=== PATIENT | female | born 1970 | race Caucasian/White ===

== ENCOUNTER → 2018-12-10 08:05 | Outpatient (CLI) | payer OTHER, SELFPAY ==
[2018-12-10 08:46] LABS: Basophils % 1.4 % (0.1-2.0); Eosinophils # 0.1 K/mm3 (0.0-0.4); Eosinophils % 3.5 % (0.1-12.0); Hematocrit 38.9 % (37.0-47.0); Hemoglobin 12.6 g/dL (12.2-16.2); Lymphocytes # 1.2 K/mm3 (0.7-4.5); Lymphocytes % 41.8 % (10-50); Mean Corpuscular HGB Conc 32.4 g/dL (31.8-35.4); Mean Corpuscular Hemoglobin 30.7 pg (27.0-31.2); Mean Corpuscular Volume 94.8 fl (81-99); Mean Platelet Volume 7.5 fl (7.4-10.4); Monocytes # 0.2 K/mm3 (0.1-1.0); Monocytes % 5.6 % (1.7-9.3); Neutrophils # 1.4 K/mm3 (1.8-7.8); Neutrophils % 47.7 % (37.0-80.0); Platelet Count 236 K/mm3 (142-424); Red Blood Count 4.11 M/mm3 (4.20-5.40); Red Cell Distribution Width 13.7 % (11.5-17.5); White Blood Count 2.9 K/mm3 (4.8-10.8)
[2018-12-10 10:08] LABS: Alanine Aminotransferase 20 U/L (12-78); Albumin Level 3.4 gm/dL (3.4-5.0); Alkaline Phosphatase 54 U/L (46-116); Anion Gap 8.6 mEq/L (5-15); Aspartate Amino Transferase 12 U/L (15-37); Bilirubin,Total 0.9 mg/dL (0.2-1.0); Blood Urea Nitrogen 16 mg/dL (7-18); Calcium 8.7 mg/dL (8.5-10.1); Carbon Dioxide 29 mmol/L (21.0-32.0); Chloride 107 mmol/L (98-107); Chol/HDL Ratio 2.4 (1-3.5); Cholesterol 166 mg/dL (140-200); Creatinine,Serum 0.74 mg/dL (0.55-1.02); Estimated Glomerular Filt Rate 83 ml/min (>60); GFR (African American) 101 ML/MIN (>60); Globulin 3.5 gm/dl (1.3-3.2); Glucose 87 mg/dL (74-106); HDL Cholesterol 69 mg/dL (29-89); LDL Cholesterol 90 mg/dL (0-130); Potassium 4.6 mmoL/L (3.5-5.1); Sodium 140 mmol/L (136-145); Thyroid Stimulating Hormone 2.72 uIU/ml (0.358-3.740); Total Protein,Serum 6.9 gm/dL (6.4-8.2); Triglycerides 37 mg/dL (30-200); VLDL Cholesterol 7 mg/dL (0-40)
[2018-12-11 10:14] LABS: Vitamin D 25 Hydroxy 18.8 ng/mL (30.0-100.0)
[2018-12-12 15:30] LABS: Ferritin 39 ng/mL (8-388)
[2018-12-14 14:41] LABS: Vitamin B12 496 pg/mL (232-1245)
== END ==
PROVIDERS: Visit Provider Nurse Practitioner Family
DX: Z00.00 Encounter for general adult medical examination without abnormal findings (principal); L73.9 Follicular disorder, unspecified; E55.9 Vitamin D deficiency, unspecified
CPT/HCPCS: 36415; 80053; 80061; 82607; 82652; 82728; 84443; 85025

== ENCOUNTER → 2019-11-07 08:54 | Outpatient (CLI) | payer OTHER, SELFPAY ==
--- NOTE | 2019-11-07 08:59 | MM_ITS ---
PROCEDURE: MM DIG SCREENING MAMM BI W/CAD Digital Breast Tomosynthesis Included CLINICAL INDICATION: SCREENING There is a history of breast cancer patient's paternal aunt. COMPARISON: DIGMAMMS MAMMOGRAM SCREEN-MAIL CLERK N/C from 06/05/2009 DIGMAMMDX MAMMOGRAM DX-MAIL CLERK N/C from 02/02/2010 DMSB DIG MAMM-SCREEN KADEN from 09/01/2015 TECHNIQUE: Standard CC and MLO images and 3D Tomosynthesis was obtained. R2 CAD reviewed. FINDINGS: Moderate diffuse fibroglandular densities are seen in both breasts and the findings are bilateral and symmetrical. There couple of benign-appearing calcifications in each breast. There is a small benign-appearing nodular density upper-outer quadrant left breast likely a small fibroadenoma or intramammary lymph node. There is no suspicious lesion and no suspicious microcalcifications. IMPRESSION: Moderate diffuse breast density with no suspicious lesions seen BI-RAD Category: 2 Benign Finding(s) FOLLOW-UP: 1YR 1 Year Follow-up (A letter has been sent to the patient regarding results of the study.) Dictated by: Dr. David Ascencio MD 11/09/2019 10:[address] David Ascencio MD in [place] 11/09/2019 10:22
== END ==
PROVIDERS: PCP Nurse Practitioner Family; Visit Provider Nurse Practitioner Family
DX: Z12.31 Encounter for screening mammogram for malignant neoplasm of breast (principal)
CPT/HCPCS: 77063; 77067

== ENCOUNTER 2019-12-13 07:29 | Day surgery (SDC) | payer OTHER, SELFPAY ==
[2019-12-09 12:14] VITALS: BMI 26.5
[2019-12-13] VITALS (7 sets, daily range): BP systolic 91–120; BP diastolic 51–66; PULSE 53–73; RESP 16–20; TEMP 36.2–36.6; O2SAT 96–100
--- NOTE | 2019-12-13 08:13 | P.PCN_ITS ---
[facility] Procedure Note Procedure Note:: Colonoscopy Procedure Report: Colonoscopy Endoscopist: Paulino Sheppard II, MD Referring physician: MARIANO Oakes/Ralph Tidwell M.D. Date of Procedure: December 13, 2019 Equipment: Olympus 180 variable stiffness pediatric colonoscope Sedation: MAC sedation Indication: Mrs. Tidwell is a 49-year-old female who is here for initial screening colonoscopy. She reports no abdominal pain, weight loss, change in her bowel habits or rectal bleeding. She reports no family history of colon cancer. Procedure: Prior to the procedure, a history and physical exam was performed, and patient's medications and allergies were reviewed. The risks, benefits and alternatives of the sedation and procedure were discussed with the patient. All questions were answered and informed consent was obtained. The patient was brought to the procedure room. Patient identification and proposed procedure were verified by the physician and the nurse. The patient was placed in a left lateral decubitus position and the scope was passed under direct vision. Throughout the procedure, the patient's blood pressure, pulse, and oxygen saturations were monitored continuously. The colonoscopy was accomplished without difficulty. The patient tolerated the procedure well. Findings: On digital rectal examination there was normal rectal tone. There were no external hemorrhoids. The colonoscope was introduced through the anal canal to the rectum and advanced to the cecum. The ileocecal valve and appendiceal orifice were identified. The scope was advanced a short distance into the ileum which appeared grossly normal. The scope was then withdrawn into the colon. The cecum, ascending and transverse colon and mucosa were grossly normal. There were mildly scattered diverticuli throughout the descending and sigmoid colon (LEFT colon). The rectum itself was normal. Upon retroflexion within the rectum there were grade 1-2 internal hemorrhoids. The preparation was fair to good throughout with Nara Visa Preparation Score of 7 out of 9. The cecal time was 12 minutes. Impression: 1. Mild left-sided diverticulosis 2. Grade 1-2 internal hemorrhoids Plan: The patient will not require screening/surveillance colonoscopy again for 10 years by ACS guidelines. I would encourage fiber supplementation on a long-term daily maintenance basis.
--- NOTE | 2019-12-13 08:20 | P.PN_ITS ---
[facility] Anesthesia Checklist - Patient Identification Patient Identification: Arm Band, Verbal (Name & ) - Structural Data Admitted From: Home Planned Operative Procedure/s: colonoscopy Consent for Planned Operative Procedure(s) Verified: Yes Verified Documents: Surgical Consent, History and Physical - NPO Status Verified Time NPO: 00:00 - Chart Verification Results Verified: None - Additional verifications Patient : No Anesthesia Reactions: No - Airway Assessment C-Spine Mobility Assessed: Yes TMJ Mobility Assessed: Yes Dentition: Good Dentition - Neurological Assessment Level of Consciousness: Awake, Alert, Appropriate, Follows Commands Hx Seizures: No Numbness or tingling in extremities: No - Anesthesia Plan Anesthesia Risk discussed: Yes Anesthesia Plan: Verified ASA Class: I Anesthesia Type: MAC [facility] History I have reviewed the patient's past medical history: Yes Medical History: Denies:: Cancer, Diabetes Mellitus Type 1, Diabetes Mellitus Type 2, MRSA, Seizures *Have you ever received a pneumonia vaccine?: No *Have you received a flu vaccine this season?: Yes Anesthesia experience/problems:: none Other Surgeries: Yes: Hernia Repair Amputation: No Fractures: No - *Social History Educational Level: Completed Graduate School Alcohol Intake: never Substance Use Type: denies use *Occupational Status:: employed *Travel in the last 8 weeks: None Family Hx:: Diabetes
== END 2019-12-13 09:22 | disposition home or self-care (01) ==
LOC: OUTP 07:31
PROVIDERS: PCP Nurse Practitioner Family; Visit Provider Internal Medicine Gastroenterology
PROC: 0DJD8ZZ Inspection of Lower Intestinal Tract, Via Natural or Artificial Opening Endoscopic (ICD-10-PCS; CPT 45378; principal; 2019-12-13 08:30)
DX: Z12.11 Encounter for screening for malignant neoplasm of colon (principal); K57.30 Diverticulosis of large intestine without perforation or abscess without bleeding; K64.1 Second degree hemorrhoids
CPT/HCPCS: 45378

== ENCOUNTER → 2020-05-22 18:14 | Outpatient (CLI) | payer OTHER, SELFPAY | PROVIDERS: Visit Provider Nurse Practitioner Family | DX: Z20.828 Contact with and (suspected) exposure to other viral communicable diseases (principal); U07.1 COVID-19 | CPT/HCPCS: U0003 ==

== ENCOUNTER → 2020-08-24 08:15 | Outpatient (CLI) | payer OTHER, SELFPAY ==
--- NOTE | 2020-08-24 08:19 | XR_ITS ---
PROCEDURE: XR ANKLE LT MIN 3V CLINICAL INDICATION: LT ANKLE PAIN Injury with pain COMPARISON: No exams were available for comparison FINDINGS: There is a nondisplaced transverse fracture involving the lateral malleolus. The fracture is 1 cm proximal to the tip of the distal fibula. There is overlying soft tissue swelling. The ankle mortise is preserved. Unremarkable talar dome. No lytic or blastic change. IMPRESSION: Nondisplaced transverse fracture of the lateral malleolus Dictated by: Mich Browne MD 08/24/2020 09:09 Mich Browne MD in [place] 08/24/2020 09:09
== END ==
PROVIDERS: PCP Nurse Practitioner Family; Visit Provider Nurse Practitioner Family
DX: M25.572 Pain in left ankle and joints of left foot (principal)
CPT/HCPCS: 73610

== ENCOUNTER 2020-08-24 10:40 | Outpatient (RCR) | payer OTHER, SELFPAY | END 2020-08-24 11:20 | disposition home or self-care (01) | LOC: PT 10:40 | PROVIDERS: Visit Provider Orthopaedic Surgery | DX: S82.892A Other fracture of left lower leg, initial encounter for closed fracture (principal) | CPT/HCPCS: 97760 ==

== ENCOUNTER → 2020-09-14 08:10 | Outpatient (CLI) | payer OTHER, SELFPAY ==
--- NOTE | 2020-09-14 08:16 | XR_ITS ---
PROCEDURE: XR ANKLE LT MIN 3V CLINICAL INDICATION: closed fracture of L ankle Follow-up fracture COMPARISON: CR XR ANKLE LT MIN 3V from 08/24/2020 FINDINGS: Transverse fracture once again noted involving the lateral malleolus. Fracture line is somewhat more prominent compared to the previous study which may be due to bony resorption from early healing. There remains good alignment. IMPRESSION: Nondisplaced fracture lateral malleolus with slight increased prominence of the fracture line which may be related to bony resorption from early healing Dictated by: Mich Browne MD 09/14/2020 15:41 Mich Browne MD in [place] 09/14/2020 15:41
== END ==
PROVIDERS: PCP Nurse Practitioner Family; Visit Provider Orthopaedic Surgery
DX: S82.892A Other fracture of left lower leg, initial encounter for closed fracture (principal)
CPT/HCPCS: 73610

== ENCOUNTER → 2020-10-05 08:14 | Outpatient (CLI) | payer OTHER, SELFPAY ==
--- NOTE | 2020-10-05 08:19 | XR_ITS ---
PROCEDURE: XR ANKLE WT BEARING LT MIN 3V CLINICAL INDICATION: low-transverse fracture of distal fibula Follow-up fracture COMPARISON: CR XR ANKLE LT MIN 3V from 08/24/2020 CR XR ANKLE LT MIN 3V from 09/14/2020 FINDINGS: Nondisplaced fracture involves the tip of the distal fibula. Fracture line appears somewhat less apparent. There is no significant displacement. IMPRESSION: Healing distal fibular fracture Dictated by: Mich Browne MD 10/05/2020 12:19 Mich Browne MD in [place] 10/05/2020 12:19
== END ==
PROVIDERS: PCP Internal Medicine Adolescent Medicine; Visit Provider Orthopaedic Surgery
DX: S82.892A Other fracture of left lower leg, initial encounter for closed fracture (principal)
CPT/HCPCS: 73610

== ENCOUNTER 2020-10-05 09:36 | Outpatient (RCR) | payer OTHER, SELFPAY | END 2020-10-05 10:15 | disposition home or self-care (01) | LOC: PT 09:36 | PROVIDERS: Visit Provider Orthopaedic Surgery | DX: S82.892D Other fracture of left lower leg, subsequent encounter for closed fracture with routine healing (principal) ==

== ENCOUNTER → 2020-11-02 08:08 | Outpatient (CLI) | payer OTHER, SELFPAY ==
--- NOTE | 2020-11-02 08:11 | XR_ITS ---
PROCEDURE: XR ANKLE LT MIN 3V CLINICAL INDICATION: low-transverse fracture of distal fibula Follow-up fracture COMPARISON: CR XR ANKLE LT MIN 3V from 08/24/2020 CR XR ANKLE LT MIN 3V from 09/14/2020 CR XR ANKLE WT BEARING LT MIN 3V from 10/05/2020 FINDINGS: Healing nondisplaced distal fibular fracture transverse in nature. There remains some lucency at the fracture line laterally. There is good alignment. IMPRESSION: Healing nondisplaced distal fibular fracture Dictated by: Mich Browne MD 11/02/2020 09:18 Mich Browne MD in [place] 11/02/2020 09:18
== END ==
PROVIDERS: PCP Nurse Practitioner Family; Visit Provider Orthopaedic Surgery
DX: S82.892A Other fracture of left lower leg, initial encounter for closed fracture (principal)
CPT/HCPCS: 73610

== ENCOUNTER → 2020-12-14 08:44 | Outpatient (CLI) | payer OTHER, SELFPAY ==
--- NOTE | 2020-12-14 08:48 | XR_ITS ---
PROCEDURE: XR ANKLE WT BEARING LT MIN 3V CLINICAL INDICATION: closed fracture of L ankle COMPARISON: CR XR ANKLE LT MIN 3V from 08/24/2020 CR XR ANKLE LT MIN 3V from 09/14/2020 CR XR ANKLE WT BEARING LT MIN 3V from 10/05/2020 CR XR ANKLE LT MIN 3V from 11/02/2020 FINDINGS: Good alignment nondisplaced fracture involving the lateral malleolus as before overall not significantly changed. Fracture line remains barely visible. Ankle mortise is preserved. Achilles enthesophyte and small calcaneal spur noted IMPRESSION: Good alignment nondisplaced fracture distal fibula unchanged Dictated by: Mich Browne MD 12/14/2020 10:30 Mich Browne MD in [place] 12/14/2020 10:30
== END ==
PROVIDERS: PCP Nurse Practitioner Family; Visit Provider Orthopaedic Surgery
DX: S82.899A Other fracture of unspecified lower leg, initial encounter for closed fracture (principal)
CPT/HCPCS: 73610

== ENCOUNTER → 2021-01-22 09:31 | Outpatient (CLI) | payer OTHER, SELFPAY ==
[2021-01-22 09:54] LABS: Basophils % 1.2 % (0.1-2.0); Eosinophils # 0.1 K/mm3 (0.0-0.4); Eosinophils % 1.7 % (0.1-12.0); Hematocrit 36.4 % (37.0-47.0); Hemoglobin 12.2 g/dL (12.2-16.2); Lymphocytes # 1.1 K/mm3 (0.7-4.5); Lymphocytes % 32.1 % (10-50); Mean Corpuscular HGB Conc 33.5 g/dL (31.8-35.4); Mean Corpuscular Hemoglobin 30.4 pg (27.0-31.2); Mean Corpuscular Volume 90.7 fl (81-99); Mean Platelet Volume 8.1 fl (7.4-10.4); Monocytes # 0.2 K/mm3 (0.1-1.0); Monocytes % 4.2 % (1.7-9.3); Neutrophils # 2.1 K/mm3 (1.8-7.8); Neutrophils % 60.8 % (37.0-80.0); Platelet Count 248 K/mm3 (142-424); Red Blood Count 4.01 M/mm3 (4.20-5.40); Red Cell Distribution Width 13.3 % (11.5-17.5); White Blood Count 3.5 K/mm3 (4.8-10.8)
[2021-01-22 10:45] LABS: Chloride 106 mmol/L (98-107); Sodium 137 mmol/L (136-145)
[2021-01-22 10:46] LABS: Potassium 4.4 mmoL/L (3.5-5.1)
[2021-01-22 10:48] LABS: Alanine Aminotransferase 12 U/L (12-78); Alkaline Phosphatase 58 U/L (38-126); Anion Gap 10.4 mEq/L (5-15); Aspartate Amino Transferase 24 U/L (14-36); Bilirubin,Total 1.5 mg/dl (0.2-1.3); Blood Urea Nitrogen 15 mg/dl (7-17); Carbon Dioxide 25 mmol/L (22.0-30.0); Cholesterol 175 mg/dl (140-200); Estimated Glomerular Filt Rate 88 ml/min (>60); GFR (African American) 107 ML/MIN (>60); Triglycerides 66 mg/dl (30-150); VLDL Cholesterol 13 mg/dL (0-40)
[2021-01-22 10:49] LABS: Albumin Level 4.2 g/dl (3.5-5.0); Albumin/Globulin Ratio 1.5 (1.1-1.8); Calcium 8.9 mg/dl (8.4-10.2); Chol/HDL Ratio 2.1 (1-3.5); Globulin 2.8 g/dL (1.3-3.2); Glucose 91 mg/dl (74-100); HDL Cholesterol 82 mg/dl (40-60)
[2021-01-22 10:59] LABS: Direct LDL Cholesterol 71.38 mg/dL (100-129)
[2021-01-22 11:05] LABS: 25-OH Vitamin D, Total 26.6 ng/mL (30-100)
== END ==
PROVIDERS: Visit Provider Nurse Practitioner Family
DX: Z00.00 Encounter for general adult medical examination without abnormal findings (principal); E55.9 Vitamin D deficiency, unspecified
CPT/HCPCS: 36415; 80053; 80061; 82306; 85025

== ENCOUNTER → 2021-02-03 08:48 | Outpatient (CLI) | payer OTHER, SELFPAY ==
--- NOTE | 2021-02-03 08:52 | MM_ITS ---
PROCEDURE INFORMATION: Exam: MG Screening 3D Mammography Exam date and time: 02/03/2021 8:52 AM Age: 50 years old Clinical indication: Encounter for screening mammogram for malignant neoplasm of breast TECHNIQUE: Imaging protocol: Screening tomosynthesis and 2D mammography including computer-aided detection (CAD) when performed. COMPARISON: 1. MG MM DIG SCREENING MAMM BI W/CAD 11/07/2019 9:03 AM 2. MG DMSB DIG MAMM-SCREEN KADEN 09/01/2015 11:07 AM FINDINGS: MAMMOGRAPHY: Breast composition: The breast tissue is heterogeneously dense, which may obscure small masses. Mass: None. Architectural distortion: None. Calcifications: No suspicious calcifications. Asymmetric density: None. Skin thickening: None. Axillary adenopathy: None. IMPRESSION: No mammographic evidence of malignancy. Annual screening is recommended unless otherwise clinically indicated. ASSESSMENT: BI-RADS Category 1: Negative
== END ==
PROVIDERS: PCP Nurse Practitioner Family; Visit Provider Nurse Practitioner Family
DX: Z12.31 Encounter for screening mammogram for malignant neoplasm of breast (principal)
CPT/HCPCS: 77063; 77067

== ENCOUNTER → 2022-02-24 10:52 | Outpatient (CLI) | payer OTHER, SELFPAY ==
--- NOTE | 2022-02-24 10:57 | MM_ITS ---
PROCEDURE INFORMATION: Exam: MG Bilateral Screening 3D Mammography Exam date and time: 02/24/2022 10:52 AM Age: 51 years old Clinical indication: Screening examination TECHNIQUE: Imaging protocol: Bilateral Screening tomosynthesis and 2D mammography including computer-aided detection (CAD) when performed. COMPARISON: 1. MG MM DIG SCREENING MAMM BI W/CAD 02/03/2021 8:58 AM 2. MG MM DIG SCREENING MAMM BI W/CAD 11/07/2019 9:03 AM FINDINGS: MAMMOGRAPHY: Breast composition: The breasts are heterogeneously dense, which may obscure small masses. Mass: None. Architectural distortion: None. Calcifications: No suspicious calcifications. Asymmetric density: None. Skin thickening: None. Axillary adenopathy: None. IMPRESSION: No mammographic evidence of malignancy. Annual screening is recommended unless otherwise clinically indicated. ASSESSMENT: BI-RADS Category 1: Negative
== END ==
PROVIDERS: PCP Nurse Practitioner Family; Visit Provider Nurse Practitioner Family
DX: Z12.31 Encounter for screening mammogram for malignant neoplasm of breast (principal)
CPT/HCPCS: 77063; 77067

== ENCOUNTER → 2022-06-08 12:55 | Outpatient (CLI) | payer OTHER, SELFPAY ==
--- NOTE | 2022-06-08 | US_ITS ---
FINAL REPORT CLINICAL HISTORY: bilateral claudication FINDINGS: ANKLE-BRACHIAL PRESSURE INDICES Pressure indices are as follows: RIGHT LOWER EXTREMITY: Ankle-brachial pressure index: 1.3 Toe-brachial index: 0.8 Comments: Normal LEFT LOWER EXTREMITY: Ankle-brachial pressure index: 0.3 Toe-brachial index: 0.8 Comments: Normal IMPRESSION: No evidence of significant obstructive peripheral vascular disease of the lower extremities Reviewed, Interpreted and Dictated by Car Person III, MD Transcribed by Jamel Castillo Authenticated and . [facility]
== END ==
PROVIDERS: PCP Nurse Practitioner Family; Visit Provider Nurse Practitioner Family
DX: I70.213 Atherosclerosis of native arteries of extremities with intermittent claudication, bilateral legs (principal)
CPT/HCPCS: 93923

== ENCOUNTER 2022-08-02 10:00 | Outpatient (RCR) | payer OTHER, SELFPAY ==
--- NOTE | 2022-05-31 08:31 | HMH.PTOPWND ---
Rehab Outpt Wound Evaluation Rehab OP Wound Evaluation Start: 05/31/22 08:01 Freq: Status: Active Protocol: Document 05/31/22 08:20 RAVI (Rec: 05/31/22 08:30 PHORRADHA [id number]) E-signed By Oliver Delgadillo PT Subjective/History History History Pt is 52 yowf who presents with c/o B LE edema and heaviness x ~ 2-3 yrs with insidious onset of symptoms. She reports intermittent pain that is worse at night and with prolonged standing or walking and described as deep aching or burning . She reports pain has recently been worse in the lateral L lower leg and feels better with dependent positioning at night . She reports R inguinal hernia repair, but no other significant PMH. Upon examination, feet appear spared of edema and mild ankle cuff present on B LE. Subjective Subjective Pain rated 5/10 at worst. Capillary refill to B feet is appropriate. Minimal palpation tenderness on L lateral lower leg only. Edema is non- pitting in B LE. Sparse grainy nodules noted in B lower legs indicative of Lipidema in combination with pt hx. LAUREN is warranted to rule out any PAD in B LE as a precaution. Lymphedema Eval Classification of Lymphedema Secondary Lymphedema Yes: Likely Lipidema Stemmer's sign Stemmer's Sign no Stage of Lymphedema Lymphedema stages Stage I (Pitting edema, reduces w/ elevation, no fibrosis) Skin Changes Dry Skin Yes Skin Folds Yes: ankle cuffing Other Changes Yes Pain Scale Pain Scale (0-10) 5 Affected Extremities Areas Affected by Lymphedema/Edema Right Lower Extremity,Left Lower Extremity Manual Lymphatic Drainage Treatment Area MLD Treatment Area Right Lower Extremity,Left Lower Extremity Wound Problems/Impairments Impairments Problems/Impairmments Palpation Tenderness,Impaired
--- NOTE | 2022-06-27 11:10 | HMH.RHREAS ---
Rehab Reassessment Rehab OP Re-assessment Start: 06/27/22 11:04 Freq: Status: Active Protocol: Document 06/27/22 11:06 RAVI (Rec: 06/27/22 11:10 PHOCARLITO [id number]) E-signed By Oliver Delgadillo, PT Rehab Re-assessment Subjective Subjective Pt reports, Almost all of my pain at night is gone. It definitely helps with my sleeping. Objective Objective Notes Pain at worst 3/10 at this point. TTP: 0/4 noted to B LE this date. Overall edema is decreased slightly via circumferential measurments, Significant reduction in stiffness of the tissues during palpation which denotes less fibrotic edema in B LE. Assessment Progress Assessment Progressing as Expected Assessment Notes Much less pain, especially at night. Pt quality of life has somewhat improved with decreased pain. Continues to show steadily decreasing edema in B LE Patient goals met ST,2,3,4 Goals Not Met LT,2,3,4,5,6 Revised Goals none Plan Plan Continue per initial POC. Add Lymphedema pump as able. Frequency of Therapy 2 x/wk Duration of therapy 4 wks Time and Billing Re-Eval Time 14 Re-Eval Billing Units 1 PHYSICIAN CERTIFICATION: I certify the specified therapy services for Jeaneth Tidwell are required, authorized, and reviewed every 30 days.
== END 2022-08-02 10:05 | disposition home or self-care (01) ==
LOC: PT 10:00
PROVIDERS: PCP Nurse Practitioner Family; Visit Provider Nurse Practitioner Family
DX: I89.0 Lymphedema, not elsewhere classified (principal)
CPT/HCPCS: 97140; 97162; 97164

== ENCOUNTER → 2023-06-06 12:52 | Outpatient (CLI) | payer OTHER, SELFPAY ==
--- NOTE | 2023-06-06 12:56 | MM_ITS ---
PROCEDURE INFORMATION: Exam: MG Bilateral Screening 3D Mammography Exam date and time: 06/06/2023 12:52 PM Age: 53 years old Clinical indication: Screening examination. A paternal aunt had breast cancer. TECHNIQUE: Imaging protocol: Bilateral Screening tomosynthesis and 2D mammography including computer-aided detection (CAD) when performed. COMPARISON: 1. MG MM DIG SCREENING MAMM BI W/CAD 02/24/2022 10:52 AM 2. MG MM DIG SCREENING MAMM BI W/CAD 02/03/2021 8:58 AM 3. MG MM DIG SCREENING MAMM BI W/CAD 11/07/2019 9:03 AM 4. MG DMSB DIG MAMM-SCREEN KADEN 09/01/2015 11:07 AM FINDINGS: MAMMOGRAPHY: Breast composition: The breasts are heterogeneously dense, which may obscure small masses. Mass: No suspicious mass. Architectural distortion: None. Calcifications: No suspicious calcifications. Asymmetric density: None. Skin thickening: None. Axillary adenopathy: None. IMPRESSION: No mammographic evidence of malignancy. Annual screening is recommended unless otherwise clinically indicated. ASSESSMENT: BI-RADS Category 1: Negative
== END ==
PROVIDERS: PCP Nurse Practitioner Family; Visit Provider Nurse Practitioner Family
DX: Z12.31 Encounter for screening mammogram for malignant neoplasm of breast (principal)
CPT/HCPCS: 77063; 77067